=== PATIENT | male | born 1940 | race Caucasian/White ===

== ENCOUNTER → 2019-09-02 | Outpatient (CLI) | payer MEDICARE, OTHER | END | disposition home or self-care (01) | LOC: CVU 09:13 | PROVIDERS: ATTEND Internal Medicine Cardiovascular Disease | DX: I65.23 Occlusion and stenosis of bilateral carotid arteries (principal); I08.0 Rheumatic disorders of both mitral and aortic valves; I10 Essential (primary) hypertension | CPT/HCPCS: 0399T; 93306; 93880 ==

== ENCOUNTER 2020-03-27 08:57 | Inpatient (IN) | payer MEDICARE, OTHER ==
[~2020-03-27] VITALS: Ht 175.3 cm; Wt 71.5 kg
[2020-03-27] MEDS ORDERED: CHLORHEXIDINE 15 ML UDC MM ONE (10:00)
[2020-03-27] MEDS ORDERED: TADA20TA PO (10:02)
[2020-03-27] MEDS ORDERED: TESTOSTERONE IM (10:02)
[2020-03-27] MEDS ORDERED: LISI5TAB7 PO (10:02)
[2020-03-27] MEDS ORDERED: CLOP75TA52 PO (10:02)
[2020-03-27] MEDS ORDERED: ASPI-496 PO (10:02)
[2020-03-27] MEDS ORDERED: LEVO137T3 PO (10:02)
[2020-03-27] MEDS ORDERED: RED600CA2 PO (10:02)
[2020-03-27 10:08] VITALS: BP 189/71
[2020-03-27] MEDS: LACTATED RINGERS 1,000 ML IV SCH ×3 (10:08→10:53)
[2020-03-27] MEDS ORDERED: PROTAMINE SULFATE 10 MG/ML, 5ML ONE (10:12)
[2020-03-27] MEDS ORDERED: PAPAVERINE 30 MG/ML, 2ML ONE (10:12)
[2020-03-27] MEDS ORDERED: HEPARIN 1,000 UNITS/ML, 10ML ONE ×2 (10:13→12:18)
[2020-03-27] MEDS ORDERED: LIDOCAINE 1%, 20ML ONE (10:13)
[2020-03-27 10:38] LABS: ALBUMIN 3.8 g/dL (3.4-5.0); ANION GAP 7 mmol/L (5-15); CALCIUM 8.7 mg/dL (8.5-10.1); CHLORIDE 106 mmol/L (98-107)
[2020-03-27 10:41] LABS: ALANINE AMINOTRANSFERASE 22 U/L (12-78); ALKALINE PHOSPHATASE 77 U/L (45-117); BILIRUBIN,TOTAL 0.5 mg/dL (0.2-1.0); CREATININE 1.29 mg/dL (0.7-1.3); TOTAL PROTEIN 7.2 g/dL (6.4-8.2)
[2020-03-27 10:48] LABS: MEAN CORPUSCULAR HEMOGLOBIN 28.6 pg (27.5-34.5); MEAN CORPUSCULAR HGB CONC 31.7 g/dL (33.2-36.2); MEAN CORPUSCULAR VOLUME 90.2 fL (81-97); MEAN PLATELET VOLUME 7.6 fL (7.4-10.4); PLATELET COUNT 961 x10^3/uL (130-400); RED CELL DISTRIBUTION WIDTH 22.8 % (9.4-14.8)
[2020-03-27] MEDS ORDERED: ASPIRIN 81 MG TABLET EC PO ONE (11:00)
[2020-03-27] MEDS ORDERED: LIDOCAINE-MPF 1%, 2ML INFIL ONE (11:00)
[2020-03-27] MEDS ORDERED: PROPOFOL 50 ML ONE ×2 (11:01→13:12)
[2020-03-27] MEDS ORDERED: MIDAZOLAM 1 MG/ML, 2ML ONE (11:02)
[2020-03-27] MEDS ORDERED: FENTANYL PF 250 MCG/5ML ONE (11:02)
[2020-03-27] MEDS ORDERED: GLYCOPYRROLATE 0.2MG/1ML, 5ML ONE (11:15)
[2020-03-27] MEDS ORDERED: CEFAZOLIN 1,000 MG ONE (11:15)
[2020-03-27] MEDS ORDERED: PHENYLEPHRINE 10 MG/ML ONE (11:15)
[2020-03-27] MEDS ORDERED: SUCCINYLCHOLINE 20 MG/ML, 10ML ONE (11:15)
[2020-03-27 11:16] LABS: MD YES
[2020-03-27 11:17] LABS: LYMPH#(MANUAL) 2.18 x10^3/uL (1-3.4); LYMPHS% (MANUAL) 20 % (22-44); MONOS#(MANUAL) 0.76 x10^3/uL (0.3-2.7); MONOS% (MANUAL) 7 % (2-9); REACTIVE LYMPHS # (MANUAL) 0.22 x10^3/uL (0-0); REACTIVE LYMPHS % (MANUAL) 2 % (0-0); SEG#(MANUAL) 7.74 x10^3/uL (1.8-6.8); SEGS% (MANUAL) 71 % (42-75)
[2020-03-27 11:18] LABS: <PLATELET ESTIMATE> INCREASED; ANISOCYTOSIS 1+; LARGE PLATELETS 1+
[2020-03-27] MEDS ORDERED: PROPOFOL 10 MG/ML, 20ML ONE (12:30)
[2020-03-27] MEDS ORDERED: ROCURONIUM 10MG/ML,5ML ONE (12:30)
[2020-03-27] MEDS ORDERED: DEXAMETHASONE 4 MG/ML, 1ML ONE (12:31)
[2020-03-27] MEDS ORDERED: ONDANSETRON 2MG/ML, 2ML ONE (12:31)
[2020-03-27] MEDS ORDERED: FENTANYL PF 100 MCG/2ML IV PRN (13:00)
[2020-03-27] MEDS ORDERED: ONDANSETRON 2MG/ML, 2ML IVPush PRN (13:00)
[2020-03-27] MEDS ORDERED: PROMETHAZINE 25 MG/ML, 1ML IVPush PRN (13:00)
[2020-03-27] MEDS ORDERED: DIAZEPAM 5 MG/ML, 2ML IVPush PRN (13:00)
[2020-03-27] MEDS ORDERED: EPHEDRINE 50 MG/ML, 1ML IM PRN (13:00)
[2020-03-27] MEDS ORDERED: hydrALAzine 20 MG/ML, 1ML IV PRN (13:00)
[2020-03-27] MEDS ORDERED: OXYcodone 5 MG/5 ML ORAL.SOL UDC PO PRN (13:00)
[2020-03-27] MEDS ORDERED: ACETAMINOPHEN 325 MG TABLET PO PRN (13:00)
[2020-03-27] MEDS ORDERED: DIPHENHYDRAMINE 50 MG/ML, 1ML IVPush PRN (13:00)
[2020-03-27] MEDS ORDERED: EPHEDRINE 50 MG/ML, 1ML ONE (13:48)
[2020-03-27] MEDS: EPHEDRINE 50 MG/ML, 1ML IVPush PRN ×2 (13:50→14:49)
[2020-03-27] MEDS ORDERED: ACETAMINOPHEN 650 MG/20.3 ML UDC ONE (14:25)
[2020-03-27] MEDS ORDERED: HYDROmorphone 1 MG/ML, 1ML INJ ONE (14:25)
[2020-03-27] MEDS ORDERED: OXYcodone 5 MG/5 ML ORAL.SOL UDC ONE (14:26)
[2020-03-27] MEDS: HYDROmorphone 1 MG/ML, 1ML INJ IVPush PRN ×2 (14:32→14:45)
[2020-03-27] MEDS ORDERED: ONDANSETRON 2MG/ML, 2ML IV PRN (18:00)
[2020-03-27] MEDS ORDERED: NITROPRUSSIDE 50 MG in DEXTROSE 5% 248 ML IV SCH (18:00)
[2020-03-27] MEDS ORDERED: PHENYLEPHRINE 50 MG in SODIUM CHLORIDE 0.9% 245 ML IV SCH (18:00)
[2020-03-27] MEDS ORDERED: HYDROcodone/APAP 5/325 TABLET PO PRN (18:00)
[2020-03-27] MEDS: POTASSIUM CHLORIDE 20 MEQ in LACTATED RINGERS 1,000 ML IV SCH (18:52)
[2020-03-27] MEDS: SODIUM CHLORIDE FLUSH 10ML SYR IVF SCH (21:00)
[2020-03-28] MEDS: POTASSIUM CHLORIDE 20 MEQ in LACTATED RINGERS 1,000 ML IV SCH ×2 (03:36→08:20)
[2020-03-28] MEDS ORDERED: HEPARIN 5,000 UNITS/ML, 1ML SQ SCH (04:00)
[2020-03-28 05:03] LABS: CHOL/HDL RATIO 4.4; LDL/HDL RATIO 2.9 (0.5-3.0)
[2020-03-28] MEDS: HEPARIN 5,000 UNITS/ML, 1ML SQ SCH ×2 (08:00→16:18)
[2020-03-28] MEDS: SODIUM CHLORIDE FLUSH 10ML SYR IVF SCH ×2 (08:25→20:48)
[2020-03-28] MEDS: GLYCOPYRROLATE 1 MG TABLET PO SCH ×3 (11:16→20:48)
[2020-03-28] MEDS ORDERED: NITROPRUSSIDE 50 MG in DEXTROSE 5% 248 ML IV SCH (12:00)
[2020-03-28] MEDS: LACTATED RINGERS 1,000 ML IV SCH ×2 (12:30→22:30)
[2020-03-28] MEDS ORDERED: PHENYLEPHRINE 50 MG in SODIUM CHLORIDE 0.9% 245 ML IV SCH (12:30)
[2020-03-28 14:11] VITALS: BP 133/101
[2020-03-28 20:35] VITALS: BP 106/56
[2020-03-28] MEDS: HYDROcodone/APAP 5/325 TABLET PO PRN (20:48)
[2020-03-29] MEDS: HEPARIN 5,000 UNITS/ML, 1ML SQ SCH (00:39)
[2020-03-29 00:42] VITALS: BP 109/46
[2020-03-29] MEDS: HYDROcodone/APAP 5/325 TABLET PO PRN (04:39)
[2020-03-29 07:37] VITALS: BP 153/58
[2020-03-29] MEDS: GLYCOPYRROLATE 1 MG TABLET PO SCH ×2 (08:24→15:56)
[2020-03-29] MEDS: LACTATED RINGERS 1,000 ML IV SCH (08:30)
[2020-03-29] MEDS ORDERED: ASPIRIN 81 MG TABLET EC PO SCH (09:00)
[2020-03-29] MEDS ORDERED: CLOPIDOGREL 75 MG TABLET PO SCH (09:00)
[2020-03-29] MEDS: SODIUM CHLORIDE FLUSH 10ML SYR IVF SCH (09:39)
[2020-03-29 13:38] VITALS: BP 144/59
[2020-03-29] MEDS ORDERED: ACET325C6 PO (14:52)
[2020-03-29] MEDS ORDERED: Glycopyrrolate PO (14:52)
[2020-03-30] MEDS ORDERED: ASPIRIN 81 MG TABLET EC PO SCH (06:00)
[2020-03-30] MEDS ORDERED: CLOPIDOGREL 75 MG TABLET PO SCH (09:00)
== END 2020-03-29 15:40 | disposition home or self-care (01) | DRG 39 ==
LOC: ORIP 08:57 → CCU 16:53 → 5SO 03-28 14:05 → DCLOUNGE 03-29 15:30
PROVIDERS: ADMIT Surgery; ATTEND Surgery
PROC: 03CM0ZZ Extirpation of Matter from Right External Carotid Artery, Open Approach (ICD-10-PCS; 2020-03-27)
PROC: 03CK0ZZ Extirpation of Matter from Right Internal Carotid Artery, Open Approach (ICD-10-PCS; 2020-03-27)
PROC: 03UK0KZ Supplement Right Internal Carotid Artery with Nonautologous Tissue Substitute, Open Approach (ICD-10-PCS; 2020-03-27)
PROC: 03CH0ZZ Extirpation of Matter from Right Common Carotid Artery, Open Approach (ICD-10-PCS; principal; 2020-03-27 11:00)
DX: I65.21 Occlusion and stenosis of right carotid artery (principal); R00.1 Bradycardia, unspecified; D69.6 Thrombocytopenia, unspecified; I10 Essential (primary) hypertension; E78.5 Hyperlipidemia, unspecified; E86.0 Dehydration; Z88.8 Allergy status to other drugs, medicaments and biological substances; I35.2 Nonrheumatic aortic (valve) stenosis with insufficiency
CPT/HCPCS: 36415; 71045; 80053; 80061; 84443; 85025; 85347; 86850; 86900; 87081; 87635; 88305; 93005; 93306; G0378; J0690; J1100; J1170; J1644; J2250; J2405; J2704; J2720; J3010; J3480; C1768; J0330; J2370; J2440; J7120; U0001-CS

== ENCOUNTER 2020-05-05 07:52 | Day surgery (SDC) | payer MEDICARE, OTHER ==
[~2020-05-05] VITALS: Ht 175.3 cm; Wt 71.6 kg
[~2020-05-05 07:52] MED LIST: ACET325C6 PO; ASPI-496 PO; CLOP75TA52 PO; Glycopyrrolate PO; LEVO137T3 PO; LISI5TAB7 PO; RED600CA2 PO; TADA20TA PO; TESTOSTERONE IM
[2020-05-05] MEDS ORDERED: MULT-257 PO (08:11)
[2020-05-05] MEDS ORDERED: ZINC PO (08:12)
[2020-05-05 08:23] VITALS: BP 180/76
[2020-05-05 08:48] LABS: ANION GAP 4 mmol/L (5-15); CALCIUM 8.5 mg/dL (8.5-10.1); CHLORIDE 109 mmol/L (98-107); CREATININE 1.37 mg/dL (0.7-1.3); MEAN CORPUSCULAR HEMOGLOBIN 29.2 pg (27.5-34.5); MEAN CORPUSCULAR HGB CONC 32.1 g/dL (33.2-36.2); MEAN CORPUSCULAR VOLUME 90.8 fL (81-97); MEAN PLATELET VOLUME 7.3 fL (7.4-10.4); PLATELET COUNT 757 x10^3/uL (130-400); RED BLOOD COUNT 5.12 x10^6/uL (4.38-5.82); RED CELL DISTRIBUTION WIDTH 22.7 % (9.4-14.8)
[2020-05-05] MEDS ORDERED: VERAPAMIL 2.5 MG/ML, 2ML ONE (08:51)
[2020-05-05] MEDS ORDERED: MIDAZOLAM 1 MG/ML, 5ML ONE (08:51)
[2020-05-05] MEDS ORDERED: FENTANYL PF 100 MCG/2ML ONE (08:51)
[2020-05-05] MEDS ORDERED: TICAGRELOR 90 MG TABLET ONE (08:51)
[2020-05-05] MEDS ORDERED: BIVALIRUDIN 250 MG ONE (08:52)
[2020-05-05] MEDS ORDERED: LIDOCAINE-MPF 1%, 5ML ONE (08:52)
[2020-05-05] MEDS ORDERED: HEPARIN 1,000 UNITS/ML, 10ML ONE (08:52)
[2020-05-05 09:05] LABS: BASOPHILS # (AUTO) 0.04 x10^3/uL (0-0.1); BASOPHILS % (AUTO) 1 % (0-1); EOSINOPHILS # (AUTO) 0.11 x10^3/uL (0-0.4); EOSINOPHILS % (AUTO) 1 % (1-7); LYMPHOCYTES % (AUTO) 15 % (22-44); MD SCAN; MONOCYTES # (AUTO) 0.77 x10^3/uL (0.2-0.8); MONOCYTES % (AUTO) 10 % (2-9); NEUTROPHILS # (AUTO) 5.97 x10^3/uL (1.8-6.8); NEUTROPHILS % (AUTO) 74 % (42-75)
[2020-05-05] MEDS ORDERED: SODIUM CHLORIDE 0.9% 1,000 ML IV SCH (09:46)
== END 2020-05-05 13:50 | disposition home or self-care (01) ==
LOC: CACL 07:52
PROVIDERS: ATTEND Internal Medicine Cardiovascular Disease
DX: R07.9 Chest pain, unspecified (principal); I35.0 Nonrheumatic aortic (valve) stenosis; I25.10 Atherosclerotic heart disease of native coronary artery without angina pectoris; I10 Essential (primary) hypertension; Z79.02 Long term (current) use of antithrombotics/antiplatelets; Z79.82 Long term (current) use of aspirin; Z79.890 Hormone replacement therapy; Z79.899 Other long term (current) drug therapy; Z98.890 Other specified postprocedural states
CPT/HCPCS: 36415; 80048; 85025; 93454; 99156; C1769; C1894; J1644; J2250; J3010; Q9967; J0583

== ENCOUNTER 2020-05-10 08:55 | Outpatient (CLI) | payer MEDICARE, OTHER ==
[~2020-05-10 08:55] MED LIST changes: +MULT-257 PO; +ZINC PO
== END 2020-05-10 23:59 | disposition home or self-care (01) ==
LOC: CVU 08:55 → RAD 23:59
PROVIDERS: ATTEND Internal Medicine Cardiovascular Disease
DX: I65.23 Occlusion and stenosis of bilateral carotid arteries (principal); I25.10 Atherosclerotic heart disease of native coronary artery without angina pectoris; I35.0 Nonrheumatic aortic (valve) stenosis; I70.8 Atherosclerosis of other arteries; R06.02 Shortness of breath; N13.39 Other hydronephrosis; M47.9 Spondylosis, unspecified; I10 Essential (primary) hypertension
CPT/HCPCS: 71250; 74176; 93880; 93978; 94010; 94726; 94729

== ENCOUNTER 2020-05-15 22:56 | Inpatient (IN) | payer MEDICARE, OTHER ==
[~2020-05-15] VITALS: Ht 175.3 cm; Wt 70.4 kg
--- NOTE | 2020-05-15 23:22 | NUR ---
PT HANY SIGALA FROM [facility] S/P CARDIAC CATH 5 DAYS AGO. PT STATES HE HAD THE CATH BECUASE THEY WERE ASSESSING HIS HEART IN ANTICIPATION OF A TAVR PROCEDURE THAT WAS SCHEDULED FOR THIS WEEK. LABS FROM [facility] SHOW UNREMARKABLE UA, WBC OF 15.1, PLATELET OF 829K. 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 PHM INCLUDES HTN, HYPERLIPIDEMIA, HYPOTHYRIODISM. RIGHT ARM SWELLING, BOUNDING RADIAL PULSE, NO EVIDENCE OF COMPARMENT SYNDROME. CMS INTACT.
[2020-05-15] MEDS ORDERED: LISINOPRIL PO (23:44)
[2020-05-15] MEDS ORDERED: hydrALAzine 20 MG/ML, 1ML ONE (23:59)
[2020-05-16] MEDS ORDERED: LORazepam 2 MG/ML, 1ML IVPush PRN
[2020-05-16] MEDS ORDERED: BISACODYL 10 MG SUPP PR PRN
[2020-05-16] MEDS ORDERED: DOCUSATE 100 MG CAPSULE PO PRN
[2020-05-16] MEDS ORDERED: POLYETHYLENE GLYCOL 17 GM PACKET PO PRN
[2020-05-16] MEDS ORDERED: ACETAMINOPHEN 325 MG TABLET PO PRN
[2020-05-16] MEDS ORDERED: ONDANSETRON 2MG/ML, 2ML IVPush PRN
[2020-05-16] MEDS ORDERED: TEMAZEPAM 15 MG CAPSULE PO PRN
[2020-05-16] MEDS ORDERED: MELATONIN 5 MG TABLET PO PRN
[2020-05-16] MEDS ORDERED: hydrALAzine 20 MG/ML, 1ML IVPush PRN
[2020-05-16] MEDS ORDERED: OXYcodone IR 5MG TABLET PO PRN
--- NOTE | 2020-05-16 00:03 | NUR ---
PT BP HIGH. MEDICATED FOR HTN PER [facility].
--- NOTE | 2020-05-16 00:14 | NUR ---
report edwin garcia
[2020-05-16 00:39] VITALS: BP 136/57
[2020-05-16 02:25] VITALS: BP 134/66
[2020-05-16 05:39] LABS: MEAN CORPUSCULAR HEMOGLOBIN 29.4 pg (27.5-34.5); MEAN CORPUSCULAR HGB CONC 32.7 g/dL (33.2-36.2); MEAN PLATELET VOLUME 7.7 fL (7.4-10.4); PLATELET COUNT 767 x10^3/uL (130-400); RED BLOOD COUNT 5.08 x10^6/uL (4.38-5.82); RED CELL DISTRIBUTION WIDTH 22.3 % (9.4-14.8)
[2020-05-16 05:40] LABS: ANION GAP 5 mmol/L (5-15); CALCIUM 8.8 mg/dL (8.5-10.1); CHLORIDE 110 mmol/L (98-107)
[2020-05-16 06:10] LABS: INTERNATIONAL NORMALIZED RATIO 1.04 (0.93-1.1)
[2020-05-16 06:18] LABS: BASOPHILS # (AUTO) 0.01 x10^3/uL (0-0.1); BASOPHILS % (AUTO) 0 % (0-1); EOSINOPHILS # (AUTO) 0.23 x10^3/uL (0-0.4); EOSINOPHILS % (AUTO) 2 % (1-7); LYMPHOCYTES # (AUTO) 1.34 x10^3/uL (1-3.4); LYMPHOCYTES % (AUTO) 9 % (22-44); MD SCAN; MONOCYTES # (AUTO) 1.09 x10^3/uL (0.2-0.8); MONOCYTES % (AUTO) 7 % (2-9); NEUTROPHILS # (AUTO) 12.73 x10^3/uL (1.8-6.8); NEUTROPHILS % (AUTO) 83 % (42-75)
[2020-05-16 06:26] VITALS: BP 135/69
[2020-05-16] MEDS: ASPIRIN 81 MG TABLET EC PO SCH (09:05)
[2020-05-16] MEDS: CLOPIDOGREL 75 MG TABLET PO SCH (09:05)
[2020-05-16] MEDS: LISINOPRIL 10 MG TABLET PO SCH (09:05)
[2020-05-16] MEDS: FAMOTIDINE 20 MG TABLET PO SCH ×2 (09:05→20:33)
[2020-05-16] MEDS: LEVOTHYROXINE 137 MCG TABLET PO SCH (09:08)
[2020-05-16 12:37] VITALS: BP 148/69
[2020-05-16] MEDS: SODIUM CHLORIDE 0.9% 1,000 ML IV SCH ×3 (13:00→22:40)
[2020-05-16] MEDS ORDERED: TICAGRELOR 90 MG TABLET ONE (13:47)
[2020-05-16] MEDS ORDERED: VERAPAMIL 2.5 MG/ML, 2ML ONE (13:47)
[2020-05-16] MEDS ORDERED: MIDAZOLAM 1 MG/ML, 5ML ONE (13:47)
[2020-05-16] MEDS ORDERED: FENTANYL PF 100 MCG/2ML ONE (13:47)
[2020-05-16] MEDS ORDERED: BIVALIRUDIN 250 MG ONE (13:48)
[2020-05-16] MEDS ORDERED: LIDOCAINE-MPF 1%, 5ML ONE (13:48)
[2020-05-16] MEDS ORDERED: HEPARIN 1,000 UNITS/ML, 10ML ONE (13:48)
[2020-05-16] MEDS ORDERED: LIDOCAINE 1%, 20ML ONE (14:31)
[2020-05-16] MEDS ORDERED: SODIUM CHLORIDE 0.9% 1,000 ML IV SCH (16:00)
[2020-05-16 19:35] VITALS: BP 147/59
[2020-05-16] MEDS ORDERED: ATORVASTATIN 80 MG TABLET PO SCH (21:00)
[2020-05-16] MEDS ORDERED: TICAGRELOR 90 MG TABLET PO SCH (21:00)
[2020-05-17 01:02] VITALS: BP 149/67
[2020-05-17 06:27] LABS: MEAN CORPUSCULAR HEMOGLOBIN 29.4 pg (27.5-34.5); MEAN CORPUSCULAR HGB CONC 32.6 g/dL (33.2-36.2); MEAN PLATELET VOLUME 7.7 fL (7.4-10.4); PLATELET COUNT 671 x10^3/uL (130-400); RED BLOOD COUNT 4.86 x10^6/uL (4.38-5.82); RED CELL DISTRIBUTION WIDTH 22.1 % (9.4-14.8)
[2020-05-17 06:35] LABS: ANION GAP 7 mmol/L (5-15); CALCIUM 8.2 mg/dL (8.5-10.1); CHLORIDE 107 mmol/L (98-107); CREATININE 1.19 mg/dL (0.7-1.3)
[2020-05-17 06:52] VITALS: BP 166/70
[2020-05-17 06:53] LABS: BASOPHILS # (AUTO) 0.02 x10^3/uL (0-0.1); BASOPHILS % (AUTO) 0 % (0-1); EOSINOPHILS # (AUTO) 0.17 x10^3/uL (0-0.4); EOSINOPHILS % (AUTO) 2 % (1-7); LYMPHOCYTES # (AUTO) 1.22 x10^3/uL (1-3.4); LYMPHOCYTES % (AUTO) 11 % (22-44); MD SCAN; MONOCYTES # (AUTO) 0.86 x10^3/uL (0.2-0.8); MONOCYTES % (AUTO) 8 % (2-9); NEUTROPHILS # (AUTO) 8.98 x10^3/uL (1.8-6.8); NEUTROPHILS % (AUTO) 80 % (42-75)
[2020-05-17] MEDS: FAMOTIDINE 20 MG TABLET PO SCH (09:00)
[2020-05-17] MEDS: LEVOTHYROXINE 137 MCG TABLET PO SCH (09:00)
[2020-05-17] MEDS ORDERED: ATORVASTATIN 80 MG TABLET PO SCH (09:00)
[2020-05-17] MEDS: LISINOPRIL 10 MG TABLET PO SCH (09:00)
[2020-05-17] MEDS: ASPIRIN 81 MG TABLET EC PO SCH (09:00)
[2020-05-17] MEDS: CLOPIDOGREL 75 MG TABLET PO SCH (09:00)
[2020-05-17] MEDS ORDERED: ATOR-2 PO (09:45)
== END 2020-05-17 13:10 | disposition home or self-care (01) | DRG 247 ==
LOC: ED 23:25 → EDIP 23:40 → 5SO 05-16 00:25 → DCLOUNGE 05-17 13:02
PROVIDERS: ADMIT Internal Medicine; ATTEND Internal Medicine
PROC: 4A023N7 Measurement of Cardiac Sampling and Pressure, Left Heart, Percutaneous Approach (ICD-10-PCS; principal; 2020-05-16)
PROC: 027135Z Dilation of Coronary Artery, Two Arteries with Two Drug-eluting Intraluminal Devices, Percutaneous Approach (ICD-10-PCS; 2020-05-16)
PROC: B2111ZZ Fluoroscopy of Multiple Coronary Arteries using Low Osmolar Contrast (ICD-10-PCS; 2020-05-16)
PROC: B2151ZZ Fluoroscopy of Left Heart using Low Osmolar Contrast (ICD-10-PCS; 2020-05-16)
PROC: B4101ZZ Fluoroscopy of Abdominal Aorta using Low Osmolar Contrast (ICD-10-PCS; 2020-05-16)
DX: T81.718A Complication of other artery following a procedure, not elsewhere classified, initial encounter (principal); I25.10 Atherosclerotic heart disease of native coronary artery without angina pectoris; I35.0 Nonrheumatic aortic (valve) stenosis; I73.9 Peripheral vascular disease, unspecified; E03.9 Hypothyroidism, unspecified; I10 Essential (primary) hypertension; I72.1 Aneurysm of artery of upper extremity; D72.829 Elevated white blood cell count, unspecified; E78.00 Pure hypercholesterolemia, unspecified; E78.5 Hyperlipidemia, unspecified; Z86.73 Personal history of transient ischemic attack (TIA), and cerebral infarction without residual deficits; Z87.891 Personal history of nicotine dependence; D47.3 Essential (hemorrhagic) thrombocythemia; Y84.0 Cardiac catheterization as the cause of abnormal reaction of the patient, or of later complication, without mention of misadventure at the time of the procedure; Y92.9 Unspecified place or not applicable
CPT/HCPCS: 36415; 80048; 83735; 84100; 85025; 85610; 85730; 93005; 93454; 93931; 96374; 99156; 99157; C1760; C1769; C1894; C9600; C9601; G0378; J0583; J1644; J2250; J3010; C1725; C1874; C1887; J0360; J7030; Q9967

== ENCOUNTER → 2020-08-15 | Outpatient (CLI) | payer MEDICARE, OTHER ==
[~2020-08-15] MED LIST changes: +ATOR-2 PO; +LISINOPRIL PO
== END | disposition home or self-care (01) ==
LOC: CVU 14:27
PROVIDERS: ATTEND Internal Medicine Cardiovascular Disease
DX: I08.1 Rheumatic disorders of both mitral and tricuspid valves (principal); E78.5 Hyperlipidemia, unspecified; I10 Essential (primary) hypertension; Z95.2 Presence of prosthetic heart valve
CPT/HCPCS: 93306; 93356